=== PATIENT | male | born 2000 | race Caucasian/White ===

== ENCOUNTER → 2023-11-24 13:21 | Outpatient (REF) | payer BC, SELFPAY | LOC: MRI 3T 13:21 | PROVIDERS: ATTENDING PHYSICIAN Orthopaedic Surgery Sports Medicine; FAMILY PHYSICIAN Nurse Practitioner Family | DX: S43.431A Superior glenoid labrum lesion of right shoulder, initial encounter (principal) | CPT/HCPCS: 23350; 73040; 73222 ==